=== PATIENT | female | born 1945 | race Caucasian/White ===

== ENCOUNTER 2016-05-17 07:09 | Emergency (ER) | payer MEDICARE, BC ==
[~2016-05-17] VITALS: Ht 162.6 cm; Wt 63.6 kg
[~2016-05-17 07:09] MED LIST: ACTONEL; ATOXIMETIN-B1 CAP PO; CALCIUM1 CAP PO; NO HOME MEDICATIONS; ONE-A-DAY WOMEN1 TAB PO; OSCAL 500 TAB500 MG PO; RECLAST5 MG/1001 IV
[2016-05-17 07:11] VITALS: TEMP 97.8
[2016-05-17 07:56] LABS: BASO # 0.1 (0.0-0.2); BASO % 0.5 % (0.0-2.0); EOS # 0.1 (0.0-0.7); GRAN # 8.4 (1.4-6.5); GRAN % 76.4 % (42.2-75.2); HEMATOCRIT 43.2 % (37.0-47.0); HEMOGLOBIN 14.4 g/dl (12.5-16.0); LYMPH # 1.8 (1.2-3.4); LYMPH % 16.6 % (20.0-51.0); MEAN CELL VOLUME 89 fl (80.0-100.0); MEAN CORPUSCULAR HEMOGLOBIN 30 pg (27.0-31.0); MEAN CORPUSCULAR HGB CONC 33 g/dl (33.0-37.0); MEAN PLATELET VOLUME 10.8 fl (7.4-10.4); MONO # 0.6 (0.1-0.6); MONO % 5.2 % (1.7-9.3); PLATELET COUNT 283 K/mm3 (130-400); RED BLOOD COUNT 4.85 M/mm3 (4.10-5.30); REDCELL DISTRIBUTION WIDTH-CV 12.6 % (11.5-14.5)
[2016-05-17 08:20] LABS: ADJUSTED CALCIUM 9.5 mg/dL (8.4-10.2); ALBUMIN 4.1 gm/dL (3.5-5.0); BILIRUBIN,TOTAL 1.1 mg/dL (0.0-1.0); CALCIUM 9.6 mg/dL (8.4-10.2); CREATININE, serum 0.81 mg/dL (0.52-1.25); POTASSIUM 4.1 mmol/L (3.4-5.0); TOTAL PROTEIN 7.4 gm/dL (6.4-8.2)
[2016-05-17 08:54] LABS: PH 5 (5-8); SQUAMOUS EPITHELIAL 0-2 /hpf; URINE APPEARANCE Clear; URINE BACTERIA None Seen /hpf; URINE BILIRUBIN Negative (NEGATIVE); URINE BLOOD Negative (NEGATIVE); URINE COLOR Yellow; URINE GLUCOSE 1+ (NEGATIVE); URINE KETONE Trace (NEGATIVE); URINE UROBILINOGEN Negative (NEGATIVE); URINE WBC 0-2 /hpf
[2016-05-17] MEDS ORDERED: NORCO 325 MG-51 TAB PO (10:34)
[2016-05-17] MEDS ORDERED: ZOFRAN ODT4 MG PO (10:34)
[2016-05-17 11:09] VITALS: BP 135/73; PULSE 78
== END 2016-05-17 11:11 | disposition home or self-care (01) ==
LOC: COL.ER 07:09
PROVIDERS: Nurse Practitioner
DX: R10.31 Right lower quadrant pain (principal); K80.20 Calculus of gallbladder without cholecystitis without obstruction; R11.0 Nausea
CPT/HCPCS: J1170; J2405; J7030

== ENCOUNTER → 2016-09-29 | Outpatient (CLI) | payer MEDICARE, BC ==
[~2016-09-29] MED LIST changes: +NORCO 325 MG-51 TAB PO; +ZOFRAN ODT4 MG PO
== END ==
LOC: MC.RAD 09:37
DX: Z12.31 Encounter for screening mammogram for malignant neoplasm of breast (principal)

== ENCOUNTER 2017-01-16 14:53 | Inpatient (IN) | payer MEDICARE, BC ==
[~2017-01-16] VITALS: Ht 162.6 cm; Wt 61.0 kg
[2017-03-27] VITALS (12 sets, daily range): BP systolic 95–113; BP diastolic 43–66; PULSE 60–88; TEMP 98–98.9
[2017-03-28] VITALS (8 sets, daily range): BP systolic 95–135; BP diastolic 46–78; PULSE 75–91; TEMP 97.7–99.2
[2017-03-28 06:48] LABS: HEMATOCRIT 38.3 % (37.0-47.0); HEMOGLOBIN 12.7 g/dl (12.5-16.0)
[2017-03-29 03:24] VITALS: BP 112/59; PULSE 89; TEMP 98.6
[2017-03-29 06:37] LABS: HEMOGLOBIN 12.1 g/dl (12.5-16.0)
[2017-03-29 06:40] LABS: HEMATOCRIT 36.3 % (37.0-47.0)
[2017-03-29] MEDS ORDERED: NORCO 325 MG-7.1 TAB PO (07:02)
[2017-03-29] MEDS ORDERED: TYLENOL 500MG500 MG PO (07:03)
[2017-03-29] MEDS ORDERED: ZOFRAN 4MG T4 MG/TAB PO (07:04)
[2017-03-29 07:44] VITALS: BP 109/51; PULSE 82; TEMP 98.9
[2017-03-29 11:37] VITALS: BP 116/49; PULSE 79; TEMP 97.9
[2017-03-29 15:49] VITALS: BP 123/64; PULSE 85; TEMP 98.2
[2017-03-29 20:17] VITALS: BP 123/54; PULSE 89; TEMP 98.8
[2017-03-30 00:22] VITALS: BP 111/61; PULSE 86; TEMP 99; TEMP 99.4
[2017-03-30 03:55] VITALS: BP 106/52; PULSE 92; TEMP 99.1
[2017-03-30 07:48] VITALS: BP 111/56; PULSE 91; TEMP 98.2
== END 2017-03-30 10:00 | disposition home or self-care (01) | DRG 470 ==
LOC: JCC 03-27 06:50
PROVIDERS: Orthopaedic Surgery
PROC: 0SRC0J9 Replacement of Right Knee Joint with Synthetic Substitute, Cemented, Open Approach (ICD-10-PCS; principal; 2017-03-27 11:15)
DX: M17.11 Unilateral primary osteoarthritis, right knee (principal); Z87.891 Personal history of nicotine dependence
CPT/HCPCS: A4314; A4315; A9284; C1713; C1776; J0690; J1100; J2250; J2405; J2704; J7120

== ENCOUNTER → 2017-03-06 | Outpatient (CLI) | payer MEDICARE, BC | LOC: COL.LAB 13:23 | DX: Z01.812 Encounter for preprocedural laboratory examination (principal) ==

== ENCOUNTER → 2017-10-23 | Outpatient (CLI) | payer MEDICARE, BC ==
[~2017-10-23] MED LIST changes: +NORCO 325 MG-7.1 TAB PO; +TYLENOL 500MG500 MG PO; +ZOFRAN 4MG T4 MG/TAB PO
== END ==
LOC: MC.RAD 08:47
DX: Z12.31 Encounter for screening mammogram for malignant neoplasm of breast (principal)

== ENCOUNTER → 2018-10-01 | Outpatient (CLI) | payer MEDICARE, BC | LOC: COL.RAD 08:12 | DX: R10.11 Right upper quadrant pain (principal) | CPT/HCPCS: Q9967 ==

== ENCOUNTER → 2018-11-21 | Outpatient (CLI) | payer MEDICARE, BC | LOC: MC.RAD 14:42 | DX: Z12.31 Encounter for screening mammogram for malignant neoplasm of breast (principal) ==

== ENCOUNTER → 2019-12-04 | Outpatient (CLI) | payer MEDICARE, BC | LOC: MC.RAD 13:00 | DX: Z12.31 Encounter for screening mammogram for malignant neoplasm of breast (principal) ==

== ENCOUNTER → 2020-12-17 | Outpatient (CLI) | payer MEDICARE, BC | LOC: MC.RAD 09:54 | DX: Z12.31 Encounter for screening mammogram for malignant neoplasm of breast (principal) ==

== ENCOUNTER 2023-02-22 12:44 | Outpatient (CLI) | payer MEDICARE, BC ==
[~2023-02-22] VITALS: Ht 162.6 cm; Wt 68.3 kg
[2023-02-22 13:01] VITALS: BP 114/74; PULSE 77; TEMP 98.1
== END 2023-02-22 13:57 ==
LOC: EUO 12:44
DX: M81.0 Age-related osteoporosis without current pathological fracture (principal)
CPT/HCPCS: J3489